=== PATIENT | male | born 1990 | race Caucasian/White ===

== ENCOUNTER 2017-09-01 15:46 | Emergency (ER) | payer MEDICARE, MEDICAID ==
[~2017-09-01] VITALS: Ht 147.3 cm; Wt 77.3 kg
[~2017-09-01 15:46] MED LIST: CLIN-5 PO
[2017-09-01 17:36] LABS: PARTIAL THROMBOPLASTIN TIME 27 SECONDS (22-32); PROTHROMBIN TIME 9.9 SECONDS (9.0-12.0)
[2017-09-01 17:41] LABS: BASOPHILS % (AUTO) 0.3 % (0-1); EOSINOPHILS # (AUTO) 0.4 X10'3 (0-0.9); EOSINOPHILS % (AUTO) 2.9 % (0-6); HEMATOCRIT 43.5 % (42.0-52.0); LYMPHOCYTES # (AUTO) 2.6 X10'3 (1.1-4.8); LYMPHOCYTES % (AUTO) 21.4 % (21-51); MEAN CORPUSCULAR HEMOGLOBIN 30.4 PG (27.0-31.0); MEAN CORPUSCULAR HGB CONC 34.5 % (33.0-36.5); MEAN CORPUSCULAR VOLUME 88.2 FL (78-98); MEAN PLATELET VOLUME 8.2 FL (7.4-10.4); MONOCYTES # (AUTO) 0.8 X10'3 (0-0.9); MONOCYTES % (AUTO) 6.8 % (2-12); NEUTROPHILS # (AUTO) 8.4 X10'3 (1.8-7.7); NEUTROPHILS % (AUTO) 68.6 % (42-75); PLATELET COUNT 370 X10'3 (140-440); RED BLOOD COUNT 4.93 X10'6 (4.70-6.10); RED CELL DISTRIBUTION WIDTH 13.6 % (11.5-14.5); WHITE BLOOD COUNT 12.3 X10'3 (4.5-11.0)
[2017-09-01 17:44] LABS: ALANINE AMINOTRANSFERASE 72 U/L (12-78); ALBUMIN 4.2 G/DL (3.4-5.0); ALBUMIN/GLOBULIN RATIO 1.1 (1.1-1.5); ALKALINE PHOSPHATASE 70 IU/L (46-116); ANION GAP 10 (8-16); ASPARTATE AMINO TRANSFERASE 34 U/L (10-37); BILIRUBIN,TOTAL 0.4 MG/DL (0.1-1.0); BLOOD UREA NITROGEN 15 MG/DL (7-18); BUN/CREATININE RATIO 14.4 (5.4-32.0); CALCIUM 9.4 MG/DL (8.5-10.1); CHLORIDE 103 MMOL/L (99-107); CREATININE 1.04 MG/DL (0.60-1.10); GLUCOSE 115 MG/DL (70-104); POTASSIUM 3.8 MMOL/L (3.5-5.1); SODIUM 138 MMOL/L (135-145); TOTAL CARBON DIOXIDE 24.8 MMOL/L (24-32); TOTAL PROTEIN 8.1 G/DL (6.4-8.2); eGFR 86 ML/MIN
[2017-09-01] MEDS ORDERED: NO HOME MEDS (22:09)
[2017-09-01] MEDS ORDERED: LORazepam 1 MG tablet PO ONE (22:35)
[2017-09-01] MEDS ORDERED: IBUP-1984 PO (23:26)
[2017-09-01] MEDS ORDERED: LORA1TAB PO (23:26)
[2017-09-01] MEDS ORDERED: ONDA4TAB9 PO (23:26)
[2017-09-02 00:05] VITALS: BP 107/74
== END 2017-09-02 00:09 | disposition home or self-care (01) ==
LOC: ER 15:47
DX: F41.9 Anxiety disorder, unspecified (principal); M79.602 Pain in left arm; R19.7 Diarrhea, unspecified; F12.10 Cannabis abuse, uncomplicated
CPT/HCPCS: 36415; 71045; 73060; 80053; 84484; 85025; 85610; 85730; 93005; 99285

== ENCOUNTER 2017-10-16 15:24 | Emergency (ER) | payer MEDICARE, MEDICAID ==
[~2017-10-16] VITALS: Ht 147.3 cm; Wt 85.3 kg
[~2017-10-16 15:24] MED LIST changes: -CLIN-5 PO; +NO HOME MEDS
[2017-10-16] MEDS ORDERED: BACDS PO (16:52)
[2017-10-16] MEDS ORDERED: MUPI22OI30 TOP (16:52)
[2017-10-16] MEDS ORDERED: IBUP-1986 PO (16:56)
[2017-10-16 17:15] VITALS: BP 131/71
== END 2017-10-16 17:17 | disposition home or self-care (01) ==
LOC: ER 15:25
DX: L02.214 Cutaneous abscess of groin (principal); F12.90 Cannabis use, unspecified, uncomplicated; Z79.899 Other long term (current) drug therapy
CPT/HCPCS: 99284

== ENCOUNTER 2019-04-17 15:56 | Emergency (ER) | payer MEDICARE, MEDICAID ==
[~2019-04-17] VITALS: Ht 152.4 cm; Wt 72.7 kg
[~2019-04-17 15:56] MED LIST changes: +IBUP-1985 PO; +IBUP-1986 PO; +LIDOcaine 1% W/epiNEPHrine 1:100,000 20ml vial ONE
[2019-04-17 18:01] VITALS: BP 162/88
[2019-04-17] MEDS ORDERED: CEPH500C5 PO (19:00)
[2019-04-17] MEDS ORDERED: SULF1TAB49 PO (19:00)
[2019-04-17] MEDS ORDERED: cephalexin 250mg capsule PO STA (19:07)
[2019-04-17] MEDS ORDERED: sulfamethoxazole/trimethoprim DS (800/160mg) tablet PO ONE (19:10)
== END 2019-04-17 20:16 | disposition home or self-care (01) ==
LOC: ER 15:57
DX: L03.114 Cellulitis of left upper limb (principal); L02.414 Cutaneous abscess of left upper limb; F12.90 Cannabis use, unspecified, uncomplicated
CPT/HCPCS: 10060; 99283

== ENCOUNTER 2019-04-22 21:37 | Emergency (ER) | payer MEDICARE, MEDICAID ==
[~2019-04-22] VITALS: Ht 149.9 cm; Wt 72.7 kg
[~2019-04-22 21:37] MED LIST changes: +CEPH500C5 PO; -LIDOcaine 1% W/epiNEPHrine 1:100,000 20ml vial ONE; +SULF1TAB49 PO
[2019-04-22 21:43] VITALS: BP 146/90
== END 2019-04-22 23:39 | disposition home or self-care (01) ==
LOC: ER 21:38
DX: L02.414 Cutaneous abscess of left upper limb (principal); L02.412 Cutaneous abscess of left axilla; F12.90 Cannabis use, unspecified, uncomplicated
CPT/HCPCS: 99283